=== PATIENT | male | born 1955 | race African-American/Black ===

== ENCOUNTER 2017-01-01 17:47 | Emergency (ER) | payer MEDICARE, OTHER ==
[2017-01-01 19:10] LABS: BASOPHIL 0.3 % (0-2); EOSINOPHIL 0.3 % (0-5); HCT 21.7 % (42.0-52.0); HGB 7.3 g/dl (13.2-18.0); LYMPHOCYTE 7.9 % (15-48); MCHC 33.6 g/dL (32.0-36.0); MCV 77.2 fL (78.0-100.0); MONOCYTE 6.3 % (0-12); MPV 10.6 fL (6.0-9.5); NEUTROPHIL 85.2 % (41-80); PLT 279 K/uL (150-400); RBC 2.81 M/uL (4.70-6.00); RDW 14.5 % (11.5-14.0); WBC 6.1 K/uL (4.0-10.5)
[2017-01-01 19:14] LABS: ALBUMIN 3.9 g/dL (3.5-5.0); BILIRUBIN - TOTAL 0.3 mg/dL (0.1-1.0); GLOBULIN (CALCULATION) 2.9 g/dL (2.2-4.2); INR 1.09 (0.9-1.2); POTASSIUM 4.6 mmol/L (3.5-5.1); PROTHROMBIN TIME 13.7 SECONDS (11.7-14.0); PTT 30.7 SECONDS (23.2-31.4); TOTAL PROTEIN 6.8 g/dL (6.4-8.3)
[2017-01-01 19:15] LABS: D-DIMER 2.62 ug/mLFEU (0.00-0.41)
[2017-01-01 19:23] LABS: CREATININE 19.4 mg/dL (0.7-1.2)
[2017-01-01 19:25] LABS: CKMB 12.28 ng/mL (0.97-4.94)
[2017-01-01 19:26] LABS: TROPONIN T 0.417 ng/mL
[2017-01-01 20:15] LABS: MAGNESIUM 2.3 mg/dL (1.40-2.10); PHOSPHORUS 11.1 mg/dL (2.7-4.5)
== END 2017-01-01 20:03 | disposition other institution (70) ==
LOC: FER 17:47
PROVIDERS: Emergency Medicine Emergency Medical Services
DX: E11.649 Type 2 diabetes mellitus with hypoglycemia without coma (principal); E11.22 Type 2 diabetes mellitus with diabetic chronic kidney disease; I12.9 Hypertensive chronic kidney disease with stage 1 through stage 4 chronic kidney disease, or unspecified chronic kidney disease; N18.9 Chronic kidney disease, unspecified; E87.79 Other fluid overload; R09.02 Hypoxemia; E86.9 Volume depletion, unspecified; R82.90 Unspecified abnormal findings in urine; F17.210 Nicotine dependence, cigarettes, uncomplicated; Z79.84 Long term (current) use of oral hypoglycemic drugs; Z79.02 Long term (current) use of antithrombotics/antiplatelets; Z79.899 Other long term (current) drug therapy; Z99.2 Dependence on renal dialysis
CPT/HCPCS: 36415; 36600; 71010; 80053; 82550; 82553; 82803; 83735; 83880; 84100; 84484; 85025; 85379; 85610; 85730; 87040; 93005; J1940